=== PATIENT | female | born 1970 | race Hispanic/Latino ===

== ENCOUNTER 2018-02-04 22:56 | Emergency (ER) | payer SELFPAY ==
[2018-02-04] MEDS ORDERED: Lidocaine 5% Patch TD SCH (23:30)
== END 2018-02-04 23:44 | disposition home or self-care (01) ==
LOC: ERS 22:56
DX: B02.9 Zoster without complications (principal); I10 Essential (primary) hypertension; F17.210 Nicotine dependence, cigarettes, uncomplicated
CPT/HCPCS: 99283

== ENCOUNTER 2018-11-22 11:18 | Emergency (ER) | payer SELFPAY | END 2018-11-22 11:44 | disposition home or self-care (01) | LOC: ERS 11:18 | DX: R20.8 Other disturbances of skin sensation (principal); I10 Essential (primary) hypertension; F17.210 Nicotine dependence, cigarettes, uncomplicated | CPT/HCPCS: 99283 ==